=== PATIENT | male | born 1960 | race Caucasian/White ===

== ENCOUNTER 2025-03-07 07:58 | Outpatient (CLI) | payer BC ==
[2025-03-07 09:55] LABS: #Basophils 0.05 10x3/uL (0.0-0.2); #Eosinophils 0.29 10x3/uL (0.0-0.7); #Monocytes 0.70 10x3/uL (0.11-0.59); #Neutrophils 4.10 10x3/uL (1.40-6.50); %Basophils 0.7 % (0.0-1.0); %Eosinophils 4.3 % (0.0-10.0); %Lymphocytes 22.5 % (21.0-51.0); %Monocytes 10.4 % (0.0-10.0); %Neutrophils 61.4 % (42.0-75.0); Hematocrit 38.0 % (42.0-52.0); Hemoglobin 12.5 g/dL (14.0-18.0); Mean Corpuscular Hemoglobin 28.3 pg (27.0-31.0); Mean Corpuscular Volume 86.2 fL (78.0-98.0); Platelet Count 291 10x3/uL (130-400); Red Blood Cell (RBC) Count 4.41 mill/uL (4.70-6.10); White Blood Cell (WBC) Count 6.70 10x3/uL (4.8-10.8)
[2025-03-07 10:07] LABS: INR-International Normal Ratio 1.0; Prothrombin Time 13.1 sec (12.0-14.7)
[2025-03-07 10:12] LABS: Anion Gap 15 mmol/L (10-20); BUN (Urea Nitrogen) 17 mg/dL (8.4-25.7); Calc. Creatinine Clearance 0 mL/min (70-130); Calcium 8.9 mg/dL (7.8-10.44); Carbon Dioxide 23 mmol/L (23-31); Chloride 103 mmol/L (98-107); Glucose 100 mg/dL (80-115); Potassium 4.1 mmol/L (3.5-5.1); Sodium 137 mmol/L (136-145)
== END 2025-03-07 07:59 | disposition home or self-care (01) ==
LOC: LABBT 07:58
PROVIDERS: ATTEND Orthopaedic Surgery Hand Surgery
DX: Z01.818 Encounter for other preprocedural examination (principal); M18.12 Unilateral primary osteoarthritis of first carpometacarpal joint, left hand; M24.549 Contracture, unspecified hand; M77.8 Other enthesopathies, not elsewhere classified
CPT/HCPCS: 80048; 85025; 85610; 87081; 93005; 93010

== ENCOUNTER → 2025-03-11 | Day surgery (SDC) | payer BC ==
[2025-03-07 08:28] VITALS: BMI 29.2
[~2025-03-11] MED LIST: Bacitracin Zinc Ointment 30 gm TUBE ONE; CEFAZOLIN 2 GM VIAL ONE; HYDROcodone/Acetaminophen 10/325 mg Tablet PO PRN; Lidocaine 1% PF 5 ML VIAL ONE; Ondansetron PF 4 MG/2 ML Vial IVP PRN; Ondansetron PF 4 MG/2 ML Vial ONE; PHENYLEPHRINE-NS 100 MCG/ML 10 ML SYRINGE ONE; Ropivacaine 0.2% 550 ML 550 ML NERVE BLCK SCH; Ropivacaine 0.5% HCl/PF (150 MG/30 ML VIAL) ONE; fentaNYL PF 100 MCG/2 ML SYRINGE ONE
== END ==
LOC: SDC 09:18
PROVIDERS: ATTEND Orthopaedic Surgery Hand Surgery
PROC: 3E0T3BZ Introduction of Anesthetic Agent into Peripheral Nerves and Plexi, Percutaneous Approach (ICD-10-PCS; principal; 2025-03-11)
PROC: 0PBN0ZZ Excision of Left Carpal, Open Approach (ICD-10-PCS; 2025-03-11)
PROC: 0LX60ZZ Transfer Left Lower Arm and Wrist Tendon, Open Approach (ICD-10-PCS; 2025-03-11)
PROC: 0RGV0JZ Fusion of Left Metacarpophalangeal Joint with Synthetic Substitute, Open Approach (ICD-10-PCS; 2025-03-11)
DX: M18.12 Unilateral primary osteoarthritis of first carpometacarpal joint, left hand (principal); M24.549 Contracture, unspecified hand; M77.8 Other enthesopathies, not elsewhere classified; M19.032 Primary osteoarthritis, left wrist; M79.644 Pain in right finger(s); Z96.651 Presence of right artificial knee joint; Z88.5 Allergy status to narcotic agent; Z90.49 Acquired absence of other specified parts of digestive tract
CPT/HCPCS: 88307; 88311; A4306; C1713; J0166; J0665; J0702; J1100; J2250; J2405; J2795; J3010; J7050